=== PATIENT | female | born 1970 | race Caucasian/White ===

== ENCOUNTER 2016-09-12 08:04 | Emergency (ER) | payer BC ==
[2016-09-12 08:13] VITALS: BMI 34.7
[2016-09-12 08:15] VITALS: BP 140/82; PULSE 99; TEMP 98.6
--- NOTE | 2016-09-12 08:46 | EDPRACDOC ---
- General Information Chief Complaint: Earache Stated Complaint: EARACHE Time Seen by Provider: 09/12/16 08:29 Information Source: Patient Home Medications: Home Medications No Home Medications 09/12/16 Allergies/Adverse Reactions: Allergies Allergy/AdvReac Type Severity Reaction Status Date / Time naproxen [From Naprosyn] Allergy Severe Hives* Verified 09/12/16 08:13 chocolate flavor Allergy Hives* Verified 09/12/16 08:13 latex Allergy Itching Verified 09/12/16 08:13 - History of Present Illness Onset: 1 WK HPI: LEFT EAR PRESSURE AND COUGH X 1 WEEK. LEFT EAR STUFFED, LEFT SINUS PROBLEM. DECREASED HEARING. UNABLE TO BE SEEN UNTIL NEXT WEEK BY PCP. FEELS LIKE A HOLLOW BASKETBALL SOUND ON LEFT. TOOK PSEUDAFED, SWIMMER EAR DROPS, COLD/FLU MEDS WITHOUT RELIEF. HAS ONLY USED NASAL SPRAY A FEW TIMES. ED Past Medical History - History Reviewed Yes Nurses notes reviewed and agree except as marked - Patient Medical History Cardiac History: Reports: Hypercholesterolemia Respiratory History: Reports: Asthma GI/ History: Reports: Urinary Tract Infection, Gastroesophageal Reflux, Pancreatitis Musculoskeletal History: Reports: Arthritis (HANDS) Psychological History: Reports: Anxiety, Bipolar Disorder (and PTSD), Substance Use Disorder. Denies: Depression Surgical History: Reports: Cholecystectomy - Family Medical History Reports: Diabetes, Cancer (Unknown types), Cardiac Disorders - Social Medical History Smoking Status: Never smoker Social History: Reports: Marijuana Use, Substance Use Disorder EDM Review of Systems - Review of Systems ROS Negative Except as Marked: Yes All systems reviewed and were negative except as marked Constitutional: No Symptoms Reported Respiratory: Cough Cardiovascular: No Symptoms Reported Gastrointestinal: Diarrhea (TODAY ONLY.) Genitourinary: No Symptoms Reported Neurological: Headache - Physical Exam Constitutional: Alert (Awake), No apparent distress Oriented to: Time, Person, Place Last recorded Vital Signs: Last Vital Signs Temp 98.6 F 09/12/16 08:13 Pulse 99 09/12/16 08:13 Resp 18 09/12/16 08:13 BP 140/82 09/12/16 08:13 Pulse Ox 96 09/12/16 08:13 Oxygen Pulse Oxygen Saturation 96 O2 Device Oxygen Flow Rate Fraction of Inspired Oxygen ( FIO2) - HEENT Head: Normal ( normocephalic) Eye Exam: Normal (PERRL, EOMI, Sclera white) Oropharynx: Normal (Pharynx:Moist without exudate,Gums-no swelling) Tympanic Membrane: Normal (ON RIGHT), Other (LEFT CLEAR FLUID BEHIND. NO BULGING OR ERYTHEMA) ENT EAC: Normal TMJ: Normal Nose: No Symptoms Reported (septum midline) Neck: Normal (FROM, trachea at midline) - Respiratory/Cardiovascular Respiratory: Normal - CTA (BBS clear to auscultation without adventitious sounds ) Cardiovascular: Normal (RRR without murmur, gallop or rub) - GI Stovall's Sign: Negative - Musculoskeletal Back: Normal (Non-Tender) Extremities: Normal (Normal tone, Pulses 2+ No cyanosis or edema, FROM) - Integumentary Skin: Normal, Warm, Dry Lymphatics: Normal (no adenopathy) - Neurologic Memory Impaired: Normal Motor Function: Normal (Normal tone, Pulses 2+ No cyanosis or edema, FROM) Cranial Nerve: Normal (CN II-X11 intact sensation, strength 5/5) Cerebellar: Normal Mood Description: Normal Perception: Normal Decision Time to Discharge: 08:54 - Departure Yes I personally saw and evaluated the patient. Disposition: Home Condition: Stable Final Diagnosis: Acute serous otitis media of left ear Qualifiers: Recurrence: not specified as recurrent Qualified Code(s): H65.02 - Acute serous otitis media, left ear Instructions: Otitis Media (ED) Education/Counseling Given To: Patient Education/Counseling Given Regarding: Diagnosis Referrals: Curt Davis MD [Primary Care Provider] - One Week Additional Instructions: NASAL SALINE SPRAY VERY 2 HOURS NEEDED
== END 2016-09-12 09:23 | disposition home or self-care (01) ==
LOC: ED 08:04
DX: H65.02 Acute serous otitis media, left ear (principal)
CPT/HCPCS: 99283

== ENCOUNTER 2016-09-28 06:46 | Emergency (ER) | payer BC ==
[2016-09-28 07:15] VITALS: BP 169/78; PULSE 93; TEMP 98.7; BMI 34.9
--- NOTE | 2016-09-28 07:20 | EDPRACDOC ---
- General Information Stated Complaint: EARACHE Time Seen by Provider: 09/28/16 07:09 Information Source: Patient Mode of Arrival: Car Home Medications: Home Medications Amoxicillin/Potassium Clav [Augmentin 875-125 Tablet] 1 each PO BID #20 tablet 09/28/16 L.acidoph & Paracasei,B.lactis [Probiotic] 3 each PO DAILY #100 capsule Allergies/Adverse Reactions: Allergies Allergy/AdvReac Type Severity Reaction Status Date / Time naproxen [From Naprosyn] Allergy Severe Hives* Verified 09/28/16 07:15 chocolate flavor Allergy Hives* Verified 09/28/16 07:15 latex Allergy Itching Verified 09/28/16 07:15 - History of Present Illness Onset: SEVERAL WKS HPI: DISCOMFORT EXTENDS AROUND LEFT EAR WELL. Location: left ear Context: Reports: Spontaneous Onset Recently Treated Ear Infection: Reports: No Pain Severity: Reports: Moderate Associated Signs & Symptoms: Reports: Other (UNABLE TO HEAR LEFT EAR) Other History: UNABLE TO GET APPOINTMENT WITH PCP. TRYING OTC DECONGESTANTS. NO FEVER OR CHILLS. STILL SYMPTOMATIC AFTER LAST ED VISIT. ED Past Medical History - History Reviewed Yes Nurses notes reviewed and agree except as marked - Patient Medical History Cardiac History: Reports: Hypercholesterolemia Respiratory History: Reports: Asthma GI/ History: Reports: Urinary Tract Infection, Gastroesophageal Reflux, Pancreatitis Musculoskeletal History: Reports: Arthritis (HANDS) Psychological History: Reports: Anxiety, Bipolar Disorder (and PTSD), Substance Use Disorder. Denies: Depression Surgical History: Reports: Cholecystectomy - Family Medical History Reports: Diabetes, Cancer (Unknown types), Cardiac Disorders - Social Medical History Smoking Status: Never smoker Social History: Reports: Marijuana Use, Substance Use Disorder EDM Review of Systems - Review of Systems ROS Negative Except as Marked: Yes All systems reviewed and were negative except as marked Constitutional: No Symptoms Reported Eyes: No Symptoms Reported Respiratory: No Symptoms Reported Cardiovascular: No Symptoms Reported - Physical Exam Constitutional: Alert (Awake), No apparent distress Oriented to: Time, Person, Place Last recorded Vital Signs: Last Vital Signs Temp 98.7 F 09/28/16 07:10 Pulse 93 09/28/16 07:10 Resp 18 09/28/16 07:10 BP 169/78 09/28/16 07:10 Pulse Ox 97 09/28/16 07:10 Oxygen Pulse Oxygen Saturation 97 O2 Device Oxygen Flow Rate Fraction of Inspired Oxygen ( FIO2) - HEENT Head: Normal ( normocephalic) Eye Exam: Normal (PERRL, EOMI, Sclera white) Oropharynx: Normal (Pharynx:Moist without exudate,Gums-no swelling) Tympanic Membrane: Normal (ON RIGHT), Other (FLUID BEHIND LEFT. CLEAR) ENT EAC: Normal Nose: No Symptoms Reported (septum midline), Other (NO BOGGINESS OF MASTOID.) Neck: Normal (FROM, trachea at midline) - Respiratory/Cardiovascular Respiratory: Normal - CTA (BBS clear to auscultation without adventitious sounds ) Cardiovascular: Normal (RRR without murmur, gallop or rub) - Musculoskeletal Back: Normal (Non-Tender) Extremities: Normal (Normal tone, Pulses 2+ No cyanosis or edema, FROM) - Integumentary Skin: Normal, Warm, Dry Lymphatics: Normal (no adenopathy) - Neurologic Memory Impaired: Normal Motor Function: Normal (Normal tone, Pulses 2+ No cyanosis or edema, FROM) Cranial Nerve: Normal (CN II-X11 intact sensation, strength 5/5) Cerebellar: Normal Mood Description: Normal Perception: Normal - Departure Yes I personally saw and evaluated the patient. Disposition: Home Condition: Stable Final Diagnosis: Left serous otitis media Qualifiers: Chronicity: unspecified Qualified Code(s): H65.92 - Unspecified nonsuppurative otitis media, left ear Instructions: Otitis Media (ED) Education/Counseling Given To: Patient Education/Counseling Given Regarding: Diagnosis Referrals: Francesco Flor DO [Staff Physician] - One Week Prescriptions: Amoxicillin/Potassium Clav [Augmentin 875-125 Tablet] 1 each PO BID #20 tablet L.acidoph & Paracasei,B.lactis [Probiotic] 3 each PO DAILY #100 capsule
== END 2016-09-28 07:31 | disposition home or self-care (01) ==
LOC: ED 06:46
DX: H65.92 Unspecified nonsuppurative otitis media, left ear (principal)
CPT/HCPCS: 99282